=== PATIENT | female | born 2000 | race Caucasian/White ===

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

== ENCOUNTER 2020-02-14 09:48 | Emergency (ER) | payer BC, OTHER ==
[~2020-02-14] VITALS: Ht 160 cm; Wt 71.8 kg
--- NOTE | 2020-02-14 10:02 | NUR ---
PT AMBULATED TO THE ROOM FROM TRIAGE W/ A STEADY GAIT.
--- NOTE | 2020-02-14 10:05 | NUR ---
RECORDS REQUEST SIGNED BY PATIENT AND FAXED TO [facility].
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
[2020-02-14] MEDS ORDERED: KETOROLAC 30 MG/1 ML ONE (10:29)
[2020-02-14] MEDS ORDERED: KETOROLAC 30 MG/1 ML IM ONE (10:30)
[2020-02-14] MEDS ORDERED: NAPR-685 PO (10:45)
[2020-02-14] MEDS ORDERED: METH750T2 PO (10:45)
--- NOTE | 2020-02-14 11:00 | NUR ---
PT TO MRI.
--- NOTE | 2020-02-14 11:10 | NUR ---
ASSUMED CARE OF PT AT THIS TIME. RECEIVED REPORT FROM MONIQUE BARRIOS. PT IN MRI CURRENTLY
[2020-02-14 11:50] VITALS: BP 127/82
--- NOTE | 2020-02-14 11:51 | NUR ---
PT BACK FROM MRI. UP FOR RECHECK. RESTING IN POSITION OF COMFORT. DENIES NEED TO USE RESTROOM. NO C-COLLAR IN PLACE PER DARRICK GOEL OR DR. REYNA. PER DARRICK GOEL, "NO CERVICAL TENDERNESS ON EXAM, MORE PARASPINAL LEFT SIDED NECK PAIN." NEURO AND CMS INTACT. PT USING OWN TABLET. MOTHER AT BEDSIDE. CALL LIGHT IN REACH. FALL PRECAUTIONS IN PLACE. VSS.
--- NOTE | 2020-02-14 11:53 | NUR ---
REPORT FROM FRANCISCO BARRIOS, ASSUME CARE OF PT AT THIS TIME.
--- NOTE | 2020-02-14 11:54 | NUR ---
BEDSIDE REPORT AND TRANSFER OF CARE TO BECKI BARRIOS AT THIS TIME.
== END 2020-02-14 12:37 | disposition home or self-care (01) ==
LOC: ED 10:07
DX: M54.12 Radiculopathy, cervical region (principal); Z87.828 Personal history of other (healed) physical injury and trauma
CPT/HCPCS: 72141; 96372; 99284; J1885; J7512

== ENCOUNTER 2020-07-01 17:19 | Emergency (ER) | payer BC, OTHER ==
[~2020-07-01] VITALS: Ht 160 cm; Wt 70.2 kg
[~2020-07-01 17:19] MED LIST: METH750T2 PO; NAPR-685 PO
--- NOTE | 2020-07-01 18:37 | NUR ---
pt to room at this time
[2020-07-01 18:48] LABS: BASOPHILS % (AUTO) 1 % (0-1); EOSINOPHILS % (AUTO) 1 % (1-7); LYMPHOCYTES % (AUTO) 35 % (22-44); MEAN CORPUSCULAR HEMOGLOBIN 29.9 pg (27.0-34.8); MEAN CORPUSCULAR HGB CONC 34.1 g/dL (32.4-35.8); MEAN PLATELET VOLUME 8.3 fL (7.4-10.4); MONOCYTES % (AUTO) 5 % (2-9); NEUTROPHILS % (AUTO) 58 % (42-75); PLATELET COUNT 329 x10^3/uL (130-400); RED CELL DISTRIBUTION WIDTH 12.7 % (9.6-15.2)
[2020-07-01 18:55] LABS: MD NO
[2020-07-01 19:02] LABS: ALANINE AMINOTRANSFERASE 32 U/L (12-78); ALBUMIN 3.8 g/dL (3.4-5.0); ANION GAP 11 mmol/L (5-15); CALCIUM 9.9 mg/dL (8.5-10.1); CHLORIDE 103 mmol/L (98-107); CREATININE 0.94 mg/dL (0.55-1.02)
[2020-07-01 19:06] LABS: ALKALINE PHOSPHATASE 75 U/L (45-117); BILIRUBIN,TOTAL 0.4 mg/dL (0.2-1.0); TOTAL PROTEIN 8.6 g/dL (6.4-8.2)
[2020-07-01 19:19] LABS: MICROSCOPIC INDICATED
[2020-07-01] MEDS ORDERED: SODIUM CHLORIDE FLUSH 10ML SYR IVF ONE (20:00)
--- NOTE | 2020-07-01 20:00 | NUR ---
RECEIVED REPORT FROM SOPHIE TAYLOR TO ASSUME CARE OF PT. IV HAS BEEN PLACED. PT. AWAITING CT. PT. REPORTS FEELING BETTER THAN SHE WAS WHEN SHE FIRST CAME IN. DENIES NEEDS. CALL LIGHT IN REACH.
[2020-07-01] MEDS ORDERED: BIRTH CONTROL PO (20:46)
[2020-07-01] MEDS ORDERED: OMNIPAQUE 350 MG/ML, 100ML BOTTLE ONE (20:58)
[2020-07-01 21:28] VITALS: BP 127/94
== END 2020-07-01 21:53 | disposition home or self-care (01) ==
LOC: ED 20:20
DX: R10.30 Lower abdominal pain, unspecified (principal)
CPT/HCPCS: 36415; 74177; 80053; 81001; 83690; 84703; 85025; 99285; Q9967